=== PATIENT | male | born 1970 | race American Indian/Alaskan Native ===

== ENCOUNTER 2017-05-14 11:49 | Inpatient (IN) | payer SELFPAY ==
[2017-05-14 12:54] LABS: Hematocrit 32.2 % (35.5-45.6); Hemoglobin 11.4 gm/dl (11.8-15.2); Mean Corpuscular HGB Conc 35 % (32-34); Red Blood Count 5.84 M/mm3 (3.65-5.03); White Blood Count 5.6 K/mm3 (4.5-11.0)
[2017-05-14 12:56] LABS: Mean Corpuscular Hemoglobin 20 pg (28-32); Mean Corpuscular Volume 55 fl (84-94)
[2017-05-14 12:57] LABS: INR 0.98 (0.87-1.13)
--- NOTE | 2017-05-14 13:00 | XRay Report ---
AP CHEST: HISTORY: chest pain Borderline to mild cardiomegaly is suspected which appears slightly increased since 10/19/14. There is normal pulmonary vascularity. The lungs are clear. Normal bony thorax. IMPRESSION: Borderline to mild cardiomegaly which appears to be new. Lungs clear.
[2017-05-14 13:04] LABS: Anion Gap 15 mmol/L; BUN/Creatinine Ratio 19; Blood Urea Nitrogen 17 mg/dL (9-20); Calcium 9.1 mg/dL (8.4-10.2); Carbon Dioxide 27 mmol/L (22-30); Chloride 99.8 mmol/L (98-107); Glucose 83 mg/dL (75-100); Potassium 4.1 mmol/L (3.6-5.0); Sodium 138 mmol/L (137-145)
[2017-05-14 13:27] LABS: Anisocytosis 3+; Basophils % (Manual) 0 % (0.0-1.8); Blastocytes % (Manual) 0 %; Hypochromasia 2+; Microcytosis 3+; Poikilocytosis 3+
[2017-05-14 13:28] LABS: Diff Status Complete; Schistocytes 1+; Tear Drop Cells 2+
[2017-05-14 13:44] LABS: Spherocytes 1+
[2017-05-14 13:45] LABS: Large Platelets Few
[2017-05-14 13:47] LABS: Platelet Count 620 K/mm3 (140-440)
--- NOTE | 2017-05-14 14:06 | Emergency Department Report ---
ED Chest Pain HPI - General Chief Complaint: Chest Pain Stated Complaint: CHEST PAIN Time Seen by Provider: 05/14/17 13:48 Source: patient, EMS Mode of arrival: Stretcher Limitations: No Limitations - History of Present Illness Initial Comments: 46yo male +HIV with c/o left arm numbness and left chest pain. He was at work and then his left arm went completely numb for 2 hours at 10:00 and then returned at 1400. His left chest began to hurt as soon as the left arm became numb. He denies n/v/ or diaphoresis. His chest pain is a tightness and throbbing pain He has a h/o HIV, tobacco abuse,marijuana abuse,Hyperlipidemia and HTN. MD Complaint: chest pain -: Sudden, hour(s) (4) Onset: during exertion, other (was at work using his hands) Pain Location: left chest Pain Radiation: LUE Severity scale (0 -10): 6 Quality: tightness, other (throbbing) Consistency: intermittent Improves With: rest Worsens With: movement re: denies: nausea, vomting, diaphoresis Other Symptoms: other (dizziness) - Related Data Home Medications Medication Instructions Recorded Confirmed Last Taken Abacavir/Dolutegravir/Lamivudi 1 each PO QPM 05/14/17 05/14/17 05/13/17 [Triumeq Tablet] Lisinopril [Zestril] 20 mg PO DAILY 05/14/17 05/14/17 Unknown Loratadine [Claritin] 10 mg PO DAILY 05/14/17 05/14/17 Unknown Allergies Allergy/AdvReac Type Severity Reaction Status Date / Time codeine AdvReac Nausea Verified 10/19/14 08:41 Heart Score - HEART Score History: Moderately suspicious EKG: Non-specific Age: 45-65 Risk factors: > 3 risk factors or hx of atherosclerotic disease Troponin: < normal limit HEART Score: 5 ED Review of Systems ROS: Stated complaint: CHEST PAIN Other details as noted in HPI Constitutional: denies: chills, fever Eyes: denies: eye pain, eye discharge, vision change ENT: denies: ear pain, throat pain Respiratory: denies: cough, shortness of breath, wheezing Cardiovascular: denies: chest pain, palpitations Endocrine: no symptoms reported Gastrointestinal: denies: abdominal pain, nausea, vomiting, diarrhea Genitourinary: denies: urgency, dysuria Musculoskeletal: denies: back pain, joint swelling, arthralgia Skin: denies: rash, lesions Neurological: paresthesias, other (dizziness). denies: headache, weakness Psychiatric: denies: anxiety, depression Hematological/Lymphatic: denies: easy bleeding, easy bruising ED Past Medical Hx - Past Medical History Previous Medical History?: Yes Hx Hypertension: Yes Hx Asthma: Yes Hx HIV: Yes Additional medical history: Possible [place], states "damage to heart". eczema. high cholesterol. anemia. allergies - Surgical History Past Surgical History?: Yes Additional Surgical History: spleenectomy. Right Knee Surgery - Social History Smoking Status: Former Smoker - Medications Home Medications: Home Medications Medication Instructions Recorded Confirmed Last Taken Type Abacavir/Dolutegravir/Lamivudi 1 each PO QPM 05/14/17 05/14/17 05/13/17 History [Triumeq Tablet] Lisinopril [Zestril] 20 mg PO DAILY 05/14/17 05/14/17 Unknown History Loratadine [Claritin] 10 mg PO DAILY 05/14/17 05/14/17 Unknown History ED Physical Exam - General Limitations: No Limitations General appearance: alert, in no apparent distress - Head Head exam: Present: atraumatic, normocephalic - Eye Eye exam: Present: normal appearance - ENT ENT exam: Present: mucous membranes moist - Neck Neck exam: Present: normal inspection - Respiratory Respiratory exam: Present: normal lung sounds bilaterally. Absent: respiratory distress - Cardiovascular Cardiovascular Exam: Present: regular rate, normal rhythm. Absent: systolic murmur, diastolic murmur, rubs, gallop - GI/Abdominal GI/Abdominal exam: Present: soft, normal bowel sounds - Rectal Rectal exam: Present: deferred - Extremities Exam Extremities exam: Present: normal inspection - Back Exam Back exam: Present: normal inspection - Neurological Exam Neurological exam: Present: alert, oriented X3 - Psychiatric Psychiatric exam: Present: normal affect, normal mood - Skin Skin exam: Present: warm, dry, intact, normal color, other (LEFT UPPER ABDOMEN SCAR). Absent: rash ED Course Vital Signs 05/14/17 05/14/17 12:26 14:39 Temperature 97.6 F Pulse Rate 81 57 L Respiratory 16 Rate Blood Pressure 143/88 120/86 O2 Sat by Pulse 98 Oximetry - Reevaluation(s) Reevaluation #1: 05/14/17 16:25 PT RELIEVED BY 2 SUBLINGUAL NITROGLYCERIN TABLET AND THUS HAS 1/2 NTP TO ANTERIOR CHEST WALL JIM score - Jim Score Age > 65: (0) No Aspirin use within the Past 7 Days: (0) No 3 or more CAD Risk Factors: (1) Yes 2 or more Angina events in past 24 hrs: (0) No Known CAD with more than 50% Stenosis: (0) No Elevated Cardiac Markers: (0) No ST Deviation Greater than 0.5mm: (0) No JIM Score: 1 ED Medical Decision Making - Lab Data Result diagrams: 05/14/17 Unknown 05/14/17 Unknown - EKG Data -: EKG Interpreted by Me EKG shows normal: sinus rhythm, axis, QRS complexes (LVH), ST-T waves (IN V3-V5 ELEVATED T WAVES) Rate: normal - Radiology Data Radiology results: report reviewed (CARDIOMEGALY) - Medical Decision Making WILL ADMIT TO EVALUATE FOR ACS Critical Care Time: Yes Critical care time in (mins) excluding proc time.: 30 Critical care attestation.: If time is entered above; I have spent that time in minutes in the direct care of this critically ill patient, excluding procedure time. ALIDA Critical Care Time: 30MIN ED Disposition Clinical Impression: Left arm weakness, HIV 2 (human immunodeficiency virus type 2), Anemia Chest pain Qualifiers: Chest pain type: unspecified Qualified Code(s): R07.9 - Chest pain, unspecified Disposition: 09 OP ADMIT IP TO THIS HOSP Is pt being admited?: Yes Does the pt Need Aspirin: No Condition: Stable Instructions: Chest Pain (ED) Referrals: PRIMARY CARE, [Primary Care Provider] - 3-5 Days Time of Disposition: 16:00 (CASE REVIEWED WITH DR ELLINGTON AND HE WILL ADMIT THE PT TO HIS SERVICE)
[2017-05-14] MEDS ORDERED: NITROSTAT SL ONE (14:07)
[2017-05-14 14:13] LABS: Red Cell Distribution Width TNR % (13.2-15.2)
[2017-05-14] MEDS ORDERED: TYLENOL ONE (14:25)
[2017-05-14] MEDS ORDERED: NACL 0.9% 1000 ML 1,000 ML ONE (14:25)
[2017-05-14] MEDS ORDERED: TYLENOL PO ONE (14:27)
[2017-05-14] MEDS ORDERED: NACL 0.9% 1000 ML 1,000 ML IV ONE (14:27)
[2017-05-14] MEDS ORDERED: NITRO-BID 2% TP ONE ×2 (14:33→14:38)
[2017-05-14 14:52] LABS: Urine Drugs of Abuse Note Disclamer
--- NOTE | 2017-05-14 17:22 | Cat Scan Report ---
FINAL REPORT PROCEDURE: CT head without contrast. TECHNIQUE: Computerized tomography of the head was performed without contrast material. HISTORY: Left arm numbness, HIV. COMPARISON: No prior studies are available for comparison. FINDINGS: The ventricles are normal in size. The ladd matter and white matter appear normal. There are no mass lesions. There is no intracranial hemorrhage. There are no signs of acute infarction. The calvarium appears intact. The mastoid air cells and paranasal sinuses are clear as far as visualized. IMPRESSION: Normal study.
--- NOTE | 2017-05-14 23:15 | History and Physical Report ---
History of Present Illness Date of examination: 05/14/17 Date of admission: 05/14/17 Chief complaint: Chest pain for 1 day History of present illness: History of Present Illness 46yo male +HIV with c/o left arm numbness and left chest pain. He was at work and then his left arm went completely numb for 2 hours at 10:00 and then returned at 1400. His left chest began to hurt as soon as the left arm became numb. He denies n/v/ or diaphoresis. His chest pain is a tightness and throbbing pain He has a h/o HIV, tobacco abuse,marijuana abuse,Hyperlipidemia and HTN. MD Complaint: chest pain -: Sudden, hour(s) (4) Onset: during exertion, other (was at work using his hands) Pain Location: left chest Pain Radiation: LUE Severity scale (0 -10): 6 Quality: tightness, other (throbbing) Consistency: intermittent Improves With: rest Worsens With: movement re: denies: nausea, vomting, diaphoresis Other Symptoms: other (dizziness) Heart Score - HEART Score History: Moderately suspicious EKG: Non-specific Age: 45-65 Risk factors: > 3 risk factors or hx of atherosclerotic disease Troponin: < normal limit HEART Score: 5 Past Medical Hx - Past Medical History Previous Medical History?: Yes Hx Hypertension: Yes Hx Asthma: Yes Hx HIV: Yes Additional medical history: Possible [place], states "damage to heart". eczema. high cholesterol. anemia. allergies - Surgical History Past Surgical History?: Yes Additional Surgical History: spleenectomy. Right Knee Surgery - Social History Smoking Status: Former Smoker - Medications Home Medications: Home Medications Medication Instructions Recorded Confirmed Last Taken Type Abacavir/Dolutegravir/Lamivudi 1 each PO QPM 05/14/17 05/14/17 05/13/17 History [Triumeq Tablet] Lisinopril [Zestril] 20 mg PO DAILY 05/14/17 05/14/17 Unknown History Loratadine [Claritin] 10 mg PO DAILY 05/14/17 05/14/17 Unknown History Review of Systems ROS: Stated complaint: CHEST PAIN Other details as noted in HPI Constitutional: denies: chills, fever Eyes: denies: eye pain, eye discharge, vision change ENT: denies: ear pain, throat pain Respiratory: denies: cough, shortness of breath, wheezing Cardiovascular: denies: chest pain, palpitations Endocrine: no symptoms reported Gastrointestinal: denies: abdominal pain, nausea, vomiting, diarrhea Genitourinary: denies: urgency, dysuria Musculoskeletal: denies: back pain, joint swelling, arthralgia Skin: denies: rash, lesions Neurological: paresthesias, other (dizziness). denies: headache, weakness Psychiatric: denies: anxiety, depression Hematological/Lymphatic: denies: easy bleeding, easy bruising Medications and Allergies Allergies Allergy/AdvReac Type Severity Reaction Status Date / Time codeine AdvReac Nausea Verified 10/19/14 08:41 Home Medications Medication Instructions Recorded Confirmed Last Taken Type Abacavir/Dolutegravir/Lamivudi 1 each PO QPM 05/14/17 05/14/17 05/13/17 History [Triumeq Tablet] Lisinopril [Zestril] 20 mg PO DAILY 05/14/17 05/14/17 Unknown History Loratadine [Claritin] 10 mg PO DAILY 05/14/17 05/14/17 Unknown History Exam - Constitutional Vitals: Temp Pulse Resp BP Pulse Ox 98.1 F 64 13 108/78 100 05/14/17 19:42 05/14/17 19:42 05/14/17 19:42 05/14/17 19:42 05/14/17 19:42 General appearance: Present: no acute distress, well-nourished - EENT Eyes: Present: PERRL ENT: hearing intact, clear oral mucosa - Neck Neck: Present: supple, normal ROM - Respiratory Respiratory effort: normal Respiratory: bilateral: CTA - Cardiovascular Heart Sounds: Present: S1 & S2. Absent: rub, click - Extremities Extremities: pulses symmetrical, No edema Peripheral Pulses: within normal limits - Abdominal General gastrointestinal: Present: soft, non-tender, non-distended, normal bowel sounds Male genitourinary: Present: normal - Integumentary Integumentary: Present: clear, warm, dry - Musculoskeletal Musculoskeletal: gait normal, strength equal bilaterally - Psychiatric Psychiatric: appropriate mood/affect, intact judgment & insight - Neurologic Neurologic: CNII-XII intact, moves all extremities Results - Labs CBC & Chem 7: 05/14/17 Unknown 05/14/17 Unknown Labs: Laboratory Last Values WBC 5.6 K/mm3 (4.5-11.0) 05/14/17 Unknown RBC 5.84 M/mm3 (3.65-5.03) H 05/14/17 Unknown Hgb 11.4 gm/dl (11.8-15.2) L 05/14/17 Unknown Hct 32.2 % (35.5-45.6) L 05/14/17 Unknown MCV 55 fl (84-94) L 05/14/17 Unknown MCH 20 pg (28-32) L 05/14/17 Unknown MCHC 35 % (32-34) H 05/14/17 Unknown RDW TNR 05/14/17 Unknown Plt Count 620 K/mm3 (140-440) H 05/14/17 Unknown Add Manual Diff Complete 05/14/17 Unknown Total Counted 100 05/14/17 Unknown Seg Neutrophils % Manufacturing Lab Technician 05/14/17 Unknown Seg Neuts % (Manual) 27.0 % (40.0-70.0) L 05/14/17 Unknown Band Neutrophils % 1.0 % 05/14/17 Unknown Lymphocytes % (Manual) 64.0 % (13.4-35.0) H 05/14/17 Unknown Reactive Lymphs % (Man) 0 % 05/14/17 Unknown Monocytes % (Manual) 5.0 % (0.0-7.3) 05/14/17 Unknown Eosinophils % (Manual) 3.0 % (0.0-4.3) 05/14/17 Unknown Basophils % (Manual) 0 % (0.0-1.8) 05/14/17 Unknown Metamyelocytes % 0 % 05/14/17 Unknown Myelocytes % 0 % 05/14/17 Unknown Promyelocytes % 0 % 05/14/17 Unknown Blast Cells % 0 % 05/14/17 Unknown Nucleated RBC % Not Reportable 05/14/17 Unknown Seg Neutrophils # Man 1.5 K/mm3 (1.8-7.7) L 05/14/17 Unknown Band Neutrophils # 0.1 K/mm3 05/14/17 Unknown Lymphocytes # (Manual) 3.6 K/mm3 (1.2-5.4) 05/14/17 Unknown Abs React Lymphs (Man) 0.0 K/mm3 05/14/17 Unknown Monocytes # (Manual) 0.3 K/mm3 (0.0-0.8) 05/14/17 Unknown Eosinophils # (Manual) 0.2 K/mm3 (0.0-0.4) 05/14/17 Unknown Basophils # (Manual) 0.0 K/mm3 (0.0-0.1) 05/14/17 Unknown Metamyelocytes # 0.0 K/mm3 05/14/17 Unknown Myelocytes # 0.0 K/mm3 05/14/17 Unknown Promyelocytes # 0.0 K/mm3 05/14/17 Unknown Blast Cells # 0.0 K/mm3 05/14/17 Unknown WBC Morphology Not Reportable 05/14/17 Unknown Hypersegmented Neuts Not Reportable 05/14/17 Unknown Hyposegmented Neuts Not Reportable 05/14/17 Unknown Hypogranular Neuts Not Reportable 05/14/17 Unknown Smudge Cells Not Reportable 05/14/17 Unknown Toxic Granulation Not Reportable 05/14/17 Unknown Toxic Vacuolation Not Reportable 05/14/17 Unknown Dohle Bodies Not Reportable 05/14/17 Unknown Pelger-Huet Anomaly Not Reportable 05/14/17 Unknown David Rods Not Reportable 05/14/17 Unknown Platelet Estimate Appears normal 05/14/17 Unknown Clumped Platelets Not Reportable 05/14/17 Unknown Plt Clumps, EDTA Not Reportable 05/14/17 Unknown Large Platelets Few 05/14/17 Unknown Giant Platelets Not Reportable 05/14/17 Unknown Platelet Satelliting Not Reportable 05/14/17 Unknown Plt Morphology Comment Not Reportable 05/14/17 Unknown RBC Morphology Not Reportable 05/14/17 Unknown Dimorphic RBCs Yes 05/14/17 Unknown Polychromasia Not Reportable 05/14/17 Unknown Hypochromasia 2+ 05/14/17 Unknown Poikilocytosis 3+ 05/14/17 Unknown Anisocytosis 3+ 05/14/17 Unknown Microcytosis 3+ 05/14/17 Unknown Macrocytosis Not Reportable 05/14/17 Unknown Spherocytes 1+ 05/14/17 Unknown Pappenheimer Bodies Not Reportable 05/14/17 Unknown Sickle Cells Not Reportable 05/14/17 Unknown Target Cells Not Reportable 05/14/17 Unknown Tear Drop Cells 2+ 05/14/17 Unknown Ovalocytes Not Reportable 05/14/17 Unknown Helmet Cells Not Reportable 05/14/17 Unknown [place] Bodies Not Reportable 05/14/17 Unknown [place] Rings Not Reportable 05/14/17 Unknown Gianna Cells Not Reportable 05/14/17 Unknown Bite Cells Not Reportable 05/14/17 Unknown Crenated Cell Not Reportable 05/14/17 Unknown Elliptocytes Not Reportable 05/14/17 Unknown Acanthocytes (Spur) Not Reportable 05/14/17 Unknown Rouleaux Not Reportable 05/14/17 Unknown Hemoglobin C Crystals Not Reportable 05/14/17 Unknown Schistocytes 1+ 05/14/17 Unknown Malaria parasites Not Reportable 05/14/17 Unknown Osiel Bodies Few 05/14/17 Unknown Hem Pathologist Commnt No 05/14/17 Unknown PT 13.5 Sec. (12.2-14.9) 05/14/17 Unknown INR 0.98 (0.87-1.13) 05/14/17 Unknown Sodium 138 mmol/L (137-145) 05/14/17 Unknown Potassium 4.1 mmol/L (3.6-5.0) 05/14/17 Unknown Chloride 99.8 mmol/L (98-107) 05/14/17 Unknown Carbon Dioxide 27 mmol/L (22-30) 05/14/17 Unknown Anion Gap 15 mmol/L 05/14/17 Unknown BUN 17 mg/dL (9-20) 05/14/17 Unknown Creatinine 0.9 mg/dL (0.8-1.5) 05/14/17 Unknown Estimated GFR > 60 ml/min 05/14/17 Unknown BUN/Creatinine Ratio 19 % 05/14/17 Unknown Glucose 83 mg/dL (75-100) 05/14/17 Unknown Calcium 9.1 mg/dL (8.4-10.2) 05/14/17 Unknown Troponin T < 0.010 ng/mL (0.00-0.029) 05/14/17 Unknown Urine Opiates Screen Presumptive negative 05/14/17 14:37 Urine Methadone Screen Presumptive negative 05/14/17 14:37 Ur Barbiturates Screen Presumptive negative 05/14/17 14:37 Ur Phencyclidine Scrn Presumptive negative 05/14/17 14:37 Ur Amphetamines Screen Presumptive negative 05/14/17 14:37 U Benzodiazepines Scrn Presumptive negative 05/14/17 14:37 Urine Cocaine Screen Presumptive negative 05/14/17 14:37 U Marijuana (THC) Screen Presumptive negative 05/14/17 14:37 Drugs of Abuse Note Disclamer 05/14/17 14:37 Short CBC 05/14/17 Range/Units Unknown WBC 5.6 (4.5-11.0) K/mm3 Hgb 11.4 L (11.8-15.2) gm/dl Hct 32.2 L (35.5-45.6) % Plt Count 620 H (140-440) K/mm3 BMP 05/14/17 Unknown Sodium 138 Potassium 4.1 Chloride 99.8 Carbon Dioxide 27 BUN 17 Creatinine 0.9 Glucose 83 Calcium 9.1 Cardiac Enzymes 05/14/17 Range/Units Unknown Troponin T < 0.010 (0.00-0.029) ng/mL - Imaging and Cardiology EKG: report reviewed Chest x-ray: report reviewed Assessment and Plan Advance Directives: Yes (Full code) VTE prophylaxis?: Chemical Plan of care discussed with patient/family: Yes - Patient Problems (1) Chest pain Current Visit: Yes Status: Acute Qualifiers: Chest pain type: unspecified Ischemic chest pain type: I Qualified Code(s ): R07.9 - Chest pain, unspecified Plan to address problem: Chest pain w/u Lexiscan ordered (2) Left arm weakness Current Visit: Yes Status: Acute Plan to address problem: Patient able to move with full strength No TIA etc (3) HIV 2 (human immunodeficiency virus type 2) Current Visit: Yes Status: Chronic Plan to address problem: Cont antiretrovirals (4) HTN (hypertension) Current Visit: Yes Status: Chronic Qualifiers: Hypertension type: essential hypertension Qualified Code(s): I10 - Essential (primary) hypertension Plan to address problem: Cont Lisinopril (5) DVT prophylaxis Current Visit: Yes Status: Acute Plan to address problem: On Lovenox
[2017-05-15] MEDS ORDERED: ASPIRIN PO SCH (02:00)
[2017-05-15 07:59] LABS: Creatine Kinase 93 units/L (55-170); Creatine Kinase MB < 1.0 ng/mL (0.0-4.0)
[2017-05-15 09:21] VITALS: BP 120/80
[2017-05-15] MEDS ORDERED: CLARITIN PO SCH (10:00)
[2017-05-15] MEDS ORDERED: ZESTRIL PO SCH (10:00)
--- NOTE | 2017-05-15 10:36 | Discharge Summary ---
Providers - Providers Date of Admission: 05/15/17 01:47 Attending physician: MADINA WINN Primary care physician: [facility] [facility] Hospitalization Condition: Stable Hospital course: Patient is a 46-year-old man with a history of HIV (followed by Dr. Mays [facility]), hypertension, anemia chronic disease, dyslipidemia and asthma who presented with chest pains. CT head without contrast read as normal study. CXR read as borderline to mild cardiomegaly which appears to be new and lungs are clear. -Chest pain which appears to be muscular skeletal/costochondritis related especially when he lifts his arms to his ear: Stress test pending, if negative will be discharged home if positive he will be seen by cardiology -HIV: Resume home medication and follow up his primary care provider at the [facility] -Hypertension: Continue present management -DysLipidemia: Continue statins -Cardiomegaly: Outpatient cardiology follow-up Disposition: DC- TO HOME OR SELFCARE Time spent for discharge: 31 minutes Core Measure Documentation - Palliative Care Palliative Care/ Comfort Measures: Not Applicable - Core Measures Any of the following diagnoses?: none - VTE Discharge Requirements Deep Vein Thrombosis/Pulmonary Embolism Present on Admission: No Has pt received <5 days of overlap therapy or INR<2.0: No Anticoagulant overlap therapy prescribed at discharge: No Contraindication No Overlap Therapy order at DC: Not Indicated Exam - Physical Exam Narrative exam: GEN: WDWN, NAD, AWAKE, ALERT, ORIENTATED 3 HEENT: NCAT, EOMI, PERRL, OP Clear NECK: supple,, no thyromegaly, no JVD CVS/HEART: RRR, NORMAL S1S2, NO JVD, pulses present bilaterally CHEST/LUNGS: CTA B, Symmetrical chest expansion, good air entry bilaterally, reproducible chest wall tenderness GI/Abdomen: soft, NTND, good bowel sounds, no guarding or rebound /Bladder: no suprapubic tenderness, no CVA or paraspinal tenderness EXT/Skin: no c/c/e, MSK: FROM x 4 Neuro: CN 2-12 grossly intact, no new focal deficits Psych: calm - Constitutional Vitals: Temp Pulse Resp BP Pulse Ox 98.1 F 93 H 12 120/80 100 05/15/17 09:09 05/15/17 09:09 05/15/17 09:09 05/15/17 09:09 05/15/17 09:09 Plan Activity: other (no strenous activity until cleared by cardiology) Diet: low salt Special Instructions: record daily BP diary Additional Instructions: See air crew member, Dr. Rice regarding blood pressure causing cardiomegaly Follow up with: PRIMARY CARE, [Primary Care Provider] - 3-5 Days ANGELA RICE MD [Staff Physician] - 14 Days
[2017-05-15] MEDS ORDERED: NON-FORMULARY (Abacavir/Dolutegravir/Lamivudi [Triumeq Tablet] 1 EACH) PO SCH (18:00)
[2017-05-15] MEDS ORDERED: LOVENOX SUB-Q SCH (22:00)
--- NOTE | 2017-05-16 00:23 | Treadmill Report ---
STRESS TEST INDICATION: Chest pain. FINDINGS: There is no scintigraphic evidence of myocardial ischemia. The left ventricle is normal in size and systolic function. The left ventricular ejection fraction is measured at 60%. Normal wall motion and wall thickening is noted on gated imaging. CONCLUSION: Normal perfusion scan. JOB# [id number] ANA LILIA/MICHELLE
== END 2017-05-15 16:45 | disposition home or self-care (01) | DRG 206 ==
LOC: ED 11:49 → 4A 05-15 01:47
PROVIDERS: ADMIT Internal Medicine; ATTEND Internal Medicine
DX: M94.0 Chondrocostal junction syndrome [Tietze] (principal); I10 Essential (primary) hypertension; D63.8 Anemia in other chronic diseases classified elsewhere; R07.89 Other chest pain; E78.5 Hyperlipidemia, unspecified; I51.7 Cardiomegaly; Z88.5 Allergy status to narcotic agent
CPT/HCPCS: 36415; 70450; 71010; 78452; 80048; 80307; 82550; 82553; 82962; 84484; 85007; 85025; 85610; 93005; 93010; 93017; A9502; J7030